=== PATIENT | male | born 1950 | race Caucasian/White ===

== ENCOUNTER → 2020-08-15 11:58 | Outpatient (CLI) | payer MEDICARE ==
[2020-06-19 10:26] VITALS: BMI 26.6
[~2020-08-15 11:58] MED LIST: BYDUREON P2 MG/0.65 SC; COZAAR100 MG PO; DULERA 100 MCG8.8 GM INH; GLIPIZIDE10 MG PO; JARDIANCE10 MG PO; LANTUS INS100 UNITS/ SC; LIPITOR80 MG PO; MELATONIN 3 MG1 TAB PO; MUCINEX600 MG PO; NORVASC10 MG PO; PROTONIX40 MG PO; TESSALON PERLE100 MG PO; TRICOR145 MG PO; VENTOLIN HFA [SP8 GM INH; VITAMIN B-1100 M1 PO; VITAMIN C PO; VITAMIN D325 MC1 PO; ZINC-220220 MG PO
== END | disposition home or self-care (01) ==
LOC: D.RT 08-13 13:00
PROVIDERS: ATTEND Internal Medicine Pulmonary Disease
DX: U07.1 COVID-19 (principal); J18.9 Pneumonia, unspecified organism